=== PATIENT | female | born 2000 | race Caucasian/White ===

== ENCOUNTER → 2019-07-30 | Outpatient (CLI) | payer OTHER ==
[2019-07-30 14:21] LABS: BASO # 0.1 10^3/uL (0.0-0.2); BASO % 0.9 % (0.0-1.0); EOS # 0.1 10^3/uL (0.0-0.5); HEMATOCRIT 43.9 % (36.0-47.0); HEMOGLOBIN 14.8 g/dl (12.0-15.5); LYMPH # 2.6 10^3/uL (1.5-5.0); LYMPH % 24.3 % (24.0-44.0); MEAN CORPUSCULAR HEMOGLOBIN 29.7 pg (27.0-33.0); MEAN CORPUSCULAR HGB CONC 33.7 g/dl (32.0-36.5); MONO # 0.7 10^3/uL (0.0-0.8); MONO % 6.7 % (0.0-5.0); NEUTROPHILS % 66.2 % (36.0-66.0); PLATELET COUNT, AUTOMATED 306 10^3/uL (150-450); RED BLOOD COUNT 4.99 10^6/uL (4.00-5.40); WHITE BLOOD COUNT 10.6 10^3/uL (4.0-10.0)
[2019-07-30 14:25] LABS: ALT/SGPT 20 U/L (12-78); BILIRUBIN,TOTAL 0.3 MG/DL (0.2-1.0); CREATININE FOR GFR 0.66 MG/DL (0.55-1.30); GLOMERULAR FILTRATION RATE > 60.0 (>60); LDH LACTATE DEHYDROGENASE 138 U/L (84-246); URIC ACID 2.8 MG/DL (2.6-6.0)
[2019-07-30 14:37] LABS: TOTAL PROTEIN,RANDOM URINE 16.6 MG/DL (0.0-12.0)
[2019-07-30 14:47] LABS: RUBELLA IgG QUALITATIVE IMMUNE (IMMUNE)
[2019-07-30 15:16] LABS: HIV 1&2 SCREEN CENTAUR NEGATIVE (NEGATIVE)
[2019-07-30 15:22] LABS: CHLAMYDIA DNA AMPLIFICATION NEGATIVE (NEGATIVE); GC DNA AMPLIFICATION NEGATIVE (NEGATIVE)
== END ==
LOC: M SMT 10:48
PROVIDERS: ATTEND Advanced Practice Midwife
DX: Z34.81 Encounter for supervision of other normal pregnancy, first trimester (principal); Z3A.00 Weeks of gestation of pregnancy not specified

== ENCOUNTER → 2019-10-08 | Outpatient (CLI) | payer OTHER ==
--- NOTE | 2019-10-09 02:05 | REP ---
Clinical: Anatomical evaluation. Comparison: None . Findings: Examination demonstrates a single live intrauterine in transverse (head to maternal right) presentation. motion is identified by technologist. Placenta is noted anterior and grade there are zero without evidence for placenta previa or abruption. Amniotic fluid volume is normal. Cervix measures no 3.2 cm in length and appears closed. No evidence for nuchal cord. Gestational age by current measurements 17 weeks 6 days with SRINIVAS 03/11/2020 . FHR equals 152 beats per minute. BPD 3.9 cm 17 weeks 6 days HC 14.9 cm 18 weeks 0 days AC 12.5 cm 18 weeks 1 day FL 2.6 cm 17 weeks 6 days HL 2.6 cm 18 weeks 2 days HC/AC ratio 1.19 Estimated weight 220 grams ( 51st percentile). Anatomical assessment demonstrates normal structures including cranium, choroid plexus, cavum, cerebellum/posterior fossa, facial features, lungs, four-chamber heart/ventricular outflow tracts, diaphragm, stomach, cord insertion/three-vessel cord, kidneys/bladder, spine, and extremities. Impression: Single live intrauterine in transverse lie demonstrating appropriate estimated weight. Anatomical assessment is complete and normal.
== END ==
LOC: M WHC 10:00
PROVIDERS: ATTEND Advanced Practice Midwife
DX: Z36.89 Encounter for other specified antenatal screening (principal); Z3A.17 17 weeks gestation of pregnancy

== ENCOUNTER → 2019-12-07 | Outpatient (REF) | payer OTHER ==
[2019-12-07 12:57] LABS: HEMATOCRIT 40.6 % (36.0-47.0); HEMOGLOBIN 13.3 g/dl (12.0-15.5); MEAN CORPUSCULAR HEMOGLOBIN 30.4 pg (27.0-33.0); MEAN CORPUSCULAR HGB CONC 32.8 g/dl (32.0-36.5); MEAN CORPUSCULAR VOLUME 92.9 fl (80.0-96.0); PLATELET COUNT, AUTOMATED 230 10^3/uL (150-450); RED BLOOD COUNT 4.37 10^6/uL (4.00-5.40)
== END ==
LOC: M PLALAB 09:36
PROVIDERS: ATTEND Advanced Practice Midwife
DX: Z34.02 Encounter for supervision of normal first pregnancy, second trimester (principal)

== ENCOUNTER → 2020-02-08 | Outpatient (REF) | payer OTHER | LOC: M SFHCWAGY 17:23 | PROVIDERS: ATTEND Advanced Practice Midwife | DX: Z34.93 Encounter for supervision of normal pregnancy, unspecified, third trimester (principal) | CPT/HCPCS: 87081; G0463 ==

== ENCOUNTER 2020-03-09 07:40 | Inpatient (IN) | payer OTHER ==
[~2020-03-09] VITALS: Ht 157.5 cm; Wt 85.3 kg
[2020-03-09] VITALS (20 sets, daily range): BP systolic 118–153; BP diastolic 57–99
[2020-03-09 09:17] LABS: HEMATOCRIT 42.2 % (36.0-47.0); HEMOGLOBIN 14.1 g/dl (12.0-15.5); MEAN CORPUSCULAR HEMOGLOBIN 29.7 pg (27.0-33.0); MEAN CORPUSCULAR HGB CONC 33.4 g/dl (32.0-36.5); MEAN CORPUSCULAR VOLUME 88.8 fl (80.0-96.0); PLATELET COUNT, AUTOMATED 263 10^3/uL (150-450); RED BLOOD COUNT 4.75 10^6/uL (4.00-5.40); WHITE BLOOD COUNT 14.2 10^3/uL (4.0-10.0)
--- NOTE | 2020-03-09 11:07 | HPE ---
DATE OF ADMISSION: 03/09/2020 19-year-old (G) 2, para (P) 2 female at 40-0/7 weeks gestation by last menstrual period (LMP), consistent with 7-week ultrasound, estimated date of confinement (EDC) 03/09/2020, presents with regular contractions every 3-4 minutes for the last several hours. Contractions increased in intensity. She denies vaginal bleeding. COURSE: The had no complications. OBSTETRICAL HISTORY: 1. 07/2014 - 37 week vaginal delivery, 7 pound 0 ounce female infant. 2. 09/2015 - 39 week vaginal delivery, 8 pound 4 ounce female infant. MEDICAL HISTORY: Noncontributory. PRIOR SURGICAL HISTORY: None. ALLERGIES: TAMIFLU. SOCIAL HISTORY: Patient lives in [place]. She denies cigarettes, alcohol, or drug use. She is . FAMILY HISTORY: Noncontributory. PHYSICAL EXAM: Blood pressure is 125/74, pulse 91, afebrile. She appears mildly uncomfortable. Head and neck exam: Normal. Lungs: Clear. Heart: Regular rate and rhythm. Abdomen: Nontender. Gravid. heart tones category 1. Contractions every 3-4 minutes, moderate. Sterile vaginal exam: 4 cm, 90%, -2, posterior, soft, vertex, bulging membranes. Extremities: Nontender. LABS: GBS negative. O positive. ASSESSMENT: 19-year-old 3, para 2 at 40 weeks gestation, presents in labor. PLAN: Patient is admitted on 03/09/2020.
[2020-03-09] MEDS ORDERED: OXYTOCIN DRIP 30 UNITS in IV 1 EA IV SCH (11:30)
[2020-03-09] MEDS: LR 1,000 ML IV SCH ×2 (11:34→13:15)
[2020-03-09] MEDS ORDERED: FENTANYL 2MCG/ML ROPIVACAINE 0.2% IN 0.9% NACL 100ML IVBAG As Ordered ONE (12:16)
[2020-03-09] MEDS ORDERED: LACTATED RINGER'S 1000 ML IV PRN (13:45)
[2020-03-09] MEDS ORDERED: diphenhydrAMINE 50MG/ML VIAL (J1200) IV PRN (13:45)
[2020-03-09] MEDS ORDERED: NALOXONE INJ 0.4MG/1ML VIAL (J2310 PER 1MG) IV PRN (13:45)
[2020-03-09] MEDS ORDERED: FENTANYL/ROPIVACAINE/NACL BAG 100 ML EPIDURAL SCH (13:45)
[2020-03-09] MEDS ORDERED: EPIDURAL/PCA KEYS XX PRN (13:45)
[2020-03-09] MEDS ORDERED: ONDANSETRON 4MG/2ML VIAL IV PRN ×2 (13:45→14:30)
[2020-03-09] MEDS ORDERED: REFRIGERATOR IV KEYS XX PRN (13:45)
[2020-03-09] MEDS ORDERED: ePHEDrine SULFATE 25 MG/5 ML(5MG/ML) SYRINGE IV PRN (13:45)
[2020-03-09] MEDS ORDERED: EPIDURAL COMMENT XX SCH (13:45)
[2020-03-09] MEDS ORDERED: ACETAMINOPHEN 500 MG TAB PO PRN (14:30)
[2020-03-09] MEDS ORDERED: MEASLES,MUMPS,RUBELLA VACCINE INJ (MMR-II) (90707) SC SCH (14:30)
[2020-03-09] MEDS ORDERED: DOCUSATE SODIUM 100 MG CAP PO PRN (14:30)
[2020-03-09] MEDS ORDERED: METHYLERGONOVINE MALEATE 0.2 MG TAB PO PRN (14:30)
[2020-03-09] MEDS ORDERED: IBUPROFEN 800 MG TAB PO PRN (14:30)
[2020-03-09] MEDS ORDERED: DIBUCAINE 1% OINTMENT 30GM TOP PRN (14:30)
[2020-03-09] MEDS ORDERED: IBUPROFEN 600MG TAB PO PRN (14:30)
[2020-03-09] MEDS ORDERED: RHOGAM 300 MCG (1500 IU) INJ (J2790) IM SCH (14:30)
[2020-03-09] MEDS ORDERED: ACETAMINOPHEN TAB 650MG DOSE (2X325MG) PO PRN (14:30)
[2020-03-09] MEDS ORDERED: OXYTOCIN DRIP 30 UNITS in IV 1 EA IV ONE (14:45)
[2020-03-10 05:34] VITALS: BP 111/66
[2020-03-10] MEDS: PRENATAL VITAMINS CHEWABLE TABLET PO SCH (07:30)
[2020-03-10 17:42] VITALS: BP 123/72
[2020-03-11 05:49] VITALS: BP 119/78
[2020-03-11] MEDS ORDERED: ACET-683 PO (08:54)
[2020-03-11] MEDS ORDERED: IBUP80TA PO (08:54)
[2020-03-11] MEDS: PRENATAL VITAMINS CHEWABLE TABLET PO SCH (08:55)
--- NOTE | 2020-03-12 10:23 | DN ---
DATE OF DELIVERY: 03/09/2020 PREDELIVERY DIAGNOSIS: 40 weeks' gestation, labor. POSTDELIVERY DIAGNOSIS: Delivered. PROCEDURE: Spontaneous vaginal delivery. TABLE ASSEMBLER: Emre Johnson MD ANESTHESIA: Epidural. ESTIMATED BLOOD LOSS: 300 mL. FINDINGS: 8-pound 6-ounce male infant, scores 8 and 9. DELIVERY SUMMARY: After a 5-minute second stage, the patient had spontaneous delivery of an 8-pound 6-ounce male , scores 8 and 9, under epidural anesthesia. There was no nuchal cord. The shoulders delivered with ease. The was handed to the mother and cried immediately. The cord was doubly clamped and cut. The placenta delivered spontaneously and appeared to be intact. There were no vaginal lacerations present. The patient received intravenous (IV) Pitocin after delivery of the placenta. Sponge counts were correct.
== END 2020-03-11 11:05 | disposition home or self-care (01) | DRG 807 ==
LOC: M LDO 07:40 → M LDI 08:30 → M OBS 16:04
PROVIDERS: ADMIT Specialist; ATTEND Specialist
PROC: 10E0XZZ Delivery of Products of Conception, External Approach (ICD-10-PCS; principal; 2020-03-09)
DX: O80 Encounter for full-term uncomplicated delivery (principal); Z37.0 Single live birth; Z3A.40 40 weeks gestation of pregnancy